=== PATIENT | female | born 1945 | race Two or more races ===

== ENCOUNTER 2021-01-09 08:53 | Emergency (ER) | payer OTHER ==
[~2021-01-09] VITALS: Ht 157.5 cm; Wt 86.6 kg
[2021-01-09] MEDS ORDERED: ONDANSETRON HCL 4 MG/2 ML VIAL IV ONE (09:15)
[2021-01-09] MEDS ORDERED: HYDROmorphone HCL 2 MG/ML VL IV ONE ×2 (09:15→10:45)
[2021-01-09] MEDS ORDERED: HYDROmorphone HCL 2 MG/ML VL ONE (10:41)
[2021-01-09 10:46] VITALS: BP 155/65
[2021-01-09] MEDS ORDERED: cefTRIAXone 1GM/50ML D5W 50 ML IV ONE ×2 (10:49→11:00)
== END 2021-01-09 11:05 | disposition short-term general hospital (02) ==
LOC: EDBD 08:53 → ER 08:53
DX: S82.892A Other fracture of left lower leg, initial encounter for closed fracture (principal); S91.002A Unspecified open wound, left ankle, initial encounter; E78.5 Hyperlipidemia, unspecified; I10 Essential (primary) hypertension; W01.0XXA Fall on same level from slipping, tripping and stumbling without subsequent striking against object, initial encounter; Y93.89 Activity, other specified; Y92.89 Other specified places as the place of occurrence of the external cause; Y99.8 Other external cause status
CPT/HCPCS: 29515; 73600; 96365; 96375; 96376; 99285; J0696; J1170; J2405